=== PATIENT | female | born 1955 | race Caucasian/White ===

== ENCOUNTER 2018-01-29 11:57 | Emergency (ER) | payer MEDICARE, MEDICAID ==
[~2018-01-29] VITALS: Ht 165.1 cm; Wt 85.3 kg
[2018-01-29 12:26] VITALS: BP 130/57
[2018-01-29] MEDS ORDERED: KETOROLAC TROMETH 60MG/2ML VIAL IM ONE (13:30)
== END 2018-01-29 13:53 | disposition home or self-care (01) ==
LOC: ER 12:03
DX: S16.1XXA Strain of muscle, fascia and tendon at neck level, initial encounter (principal); S46.911A Strain of unspecified muscle, fascia and tendon at shoulder and upper arm level, right arm, initial encounter; M48.02 Spinal stenosis, cervical region; M19.90 Unspecified osteoarthritis, unspecified site; E11.9 Type 2 diabetes mellitus without complications; R51 Headache; V49.49XA Driver injured in collision with other motor vehicles in traffic accident, initial encounter; Y93.89 Activity, other specified; Y99.8 Other external cause status; Y92.89 Other specified places as the place of occurrence of the external cause
CPT/HCPCS: 70450; 72125; 96372; 99284; J1885; L0120

== ENCOUNTER 2018-08-06 10:51 | Emergency (ER) | payer OTHER ==
[~2018-08-06] VITALS: Ht 165.1 cm; Wt 82.1 kg
[~2018-08-06 10:51] MED LIST: ALBU1AER4 IN; ALPR0.5T7 PO; AML5T PO; CITA10TA70 PO; CONJ.6252 PO; CYCL1TAB18 PO; DIPH2.5T73 PO; EZET10TA6 PO; GLIP-116 PO; HYDR-4798 PO; HYDR-4924 PO; IBU600T PO; LATA0.0015 EACHEYE; LOSA25TA40 PO; MECL-87 PO; MONT10TA34 PO; NORT25CA PO; OMEP20TA PO; PREG300C12 PO; ROFL1TAB2 PO; ROSU1TAB10 PO; TEMA15CA91 PO; VALA500T33 PO
[2018-08-06 11:05] VITALS: BP 122/69
[2018-08-06 11:54] LABS: Basophils # (auto) 0.1 uL; Eosinophils # (auto) 0.3 uL; Eosinophils % (auto) 3.3 % (0.0-7.0); Hematocrit 42.3 % (36.0-46.0); Hemoglobin 13.8 g/dL (12.2-16.2); Lymphocytes # (auto) 1.7 uL; Lymphocytes % (auto) 20.3 % (10.0-50.0); Mean Corpuscular Hemoglobin 24.5 pg (28.0-32.0); Mean Corpuscular Hgb Conc. 32.6 g/dL (32.0-36.0); Mean Corpuscular Volume 75.2 fL (80.0-100.0); Monocytes # (auto) 0.5 uL; Monocytes % (auto) 6.5 % (0.0-12.0); Neutrophils # (auto) 5.7 uL; Neutrophils % (auto) 68.9 % (37.0-80.0); Nucleated Red Blood Cells % 0.1 %; Platelet Count (auto) 331 10^3/uL (140-450); Red Blood Cells 5.62 10^6/uL (4.0-5.20); Red Cell Distribution Width 14.3 % (11.8-14.3); White Blood Cell 8.3 10^3/uL (4.4-10.8)
[2018-08-06 12:05] LABS: Alanine Aminotransferase 54 U/L (13-56); Anion Gap 11 (5-15); Aspartate Aminotransferase 34 U/L (15-37); BUN/Creatinine Ratio 9.6; Blood Urea Nitrogen 8 mg/dL (7-18); Calcium 9.4 mg/dL (8.5-10.1); Carbon Dioxide 23 mmol/L (21-32); Chloride 105 mmol/L (98-107); GFR African American 90 mL/min; GFR Non-African American 75 mL/min; Glucose 187 mg/dL (74-106); Sodium 139 mmol/L (136-145)
[2018-08-06 12:09] LABS: Alkaline Phosphatase 113 U/L (45-117); Bilirubin, Total 0.4 mg/dL (0.2-1.0); Total Protein 7.6 g/dL (6.4-8.2)
== END 2018-08-06 22:49 | disposition left against medical advice (07) ==
LOC: ER 11:02
DX: R42 Dizziness and giddiness (principal); Z53.21 Procedure and treatment not carried out due to patient leaving prior to being seen by health care provider
CPT/HCPCS: 36415; 80053; 84484; 85025; 93005

== ENCOUNTER 2020-01-18 12:45 | Inpatient (IN) | payer OTHER ==
[~2020-01-18] VITALS: Ht 165.1 cm; Wt 83.2 kg
[~2020-01-18 12:45] MED LIST changes: +CYCL10TA6 PO; -CYCL1TAB18 PO; +EZET10TA22 PO; -EZET10TA6 PO; -GLIP-116 PO; +GLIP10TA9 PO; -LATA0.0015 EACHEYE; +LATA0.0019 EACHEYE; +LOSA25TA38 PO; -LOSA25TA40 PO; -MECL-87 PO; +MECL25TA18 PO; -ROSU1TAB10 PO; +ROSU1TAB14 PO
[2020-01-18 13:49] LABS: Eosinophils # (auto) 0 10 ^3/uL (0-0.8); Lymphocytes # (auto) 0.7 10 ^3/uL (0.4-5.4); Mean Corpuscular Hemoglobin 25.4 pg (28.0-32.0)
[2020-01-18 13:50] LABS: Basophils # (auto) 0.1 10 ^3/uL (0-0.2); Eosinophils % (auto) 0.5 % (0.0-7.0); Hematocrit 45.5 % (36.0-46.0); Lymphocytes % (auto) 12.2 % (10.0-50.0); Monocytes # (auto) 0.5 10 ^3/uL (0-1.3); Monocytes % (auto) 9.5 % (0.0-12.0); Neutrophils # (auto) 4.4 10 ^3/uL (1.6-8.6); Neutrophils % (auto) 76.8 % (37.0-80.0); Platelet Count (auto) 283 10^3/uL (140-450); Red Blood Cells 5.92 10^6/uL (4.0-5.20); Red Cell Distribution Width 14.3 % (11.8-14.3); White Blood Cell 5.7 10^3/uL (4.4-10.8)
[2020-01-18 13:55] LABS: Albumin 3.7 g/dL (3.4-5.0); Anion Gap 11 (5-15); Blood Urea Nitrogen 11 mg/dL (7-18); Calcium 9.1 mg/dL (8.5-10.1); Carbon Dioxide 22 mmol/L (21-32); Chloride 100 mmol/L (98-107); Glucose 234 mg/dL (74-106); Potassium 3.9 mmol/L (3.5-5.1); Sodium 133 mmol/L (136-145)
[2020-01-18 14:02] LABS: Alanine Aminotransferase 132 U/L (13-56); Alkaline Phosphatase 115 U/L (45-117); Aspartate Aminotransferase 231 U/L (15-37); BUN/Creatinine Ratio 11.5; Bilirubin, Total 0.3 mg/dL (0.2-1.0); CRP High Sensitivity 3.08 mg/dL (< 0.3); GFR African American 76 mL/min; GFR Non-African American 63 mL/min; Total Protein 7.6 g/dL (6.4-8.2)
[2020-01-18] MEDS ORDERED: MORPHINE SULF INJ 2 MG/ML SYRINGE 1ML IV PRN ×2 (19:00)
[2020-01-18] MEDS ORDERED: LORazepam 0.5 MG TAB PO PRN (19:00)
[2020-01-18] MEDS ORDERED: ACETAMINOPHEN 500 MG TAB PO PRN (19:00)
[2020-01-18] MEDS ORDERED: DEXTROSE (50%) 50ML SYRG IV PRN (19:00)
[2020-01-18] MEDS ORDERED: ACETAMINOPHEN 325 MG TAB PO PRN (19:00)
[2020-01-18] MEDS ORDERED: SODIUM CHLORIDE 0.9% 1,000 ML IV SCH (19:00)
[2020-01-18] MEDS ORDERED: ONDANSETRON HCL 4 MG/2 ML VIAL IV PRN (19:00)
[2020-01-18] MEDS ORDERED: PNEUMOCOCCAL VACC POLYS 25 MCG/0.5 ML VIAL IM ONE (19:00)
[2020-01-18] MEDS ORDERED: ALUM & MAG HYDROX-SIMETH LIQ(MAALOX) 30 ML PO PRN (19:00)
[2020-01-18] MEDS ORDERED: INFLUENZA QUAD 2020-2021 0.5 ML SYRG IM ONE (19:00)
[2020-01-18] MEDS ORDERED: NITROGLYCERIN 0.4 MG SL TAB SL PRN (19:00)
[2020-01-18] MEDS: ALBUTEROL SULF HFA 90MCG INH 200DOSE IN SCH (22:00)
[2020-01-18] MEDS: BUDESONIDE (INHALATION) 180 MCG IH IN SCH (22:00)
[2020-01-18 22:57] LABS: Basophils # (auto) 0.1 10 ^3/uL (0-0.2); Eosinophils # (auto) 0 10 ^3/uL (0-0.8); Lymphocytes # (auto) 0.9 10 ^3/uL (0.4-5.4); Monocytes # (auto) 0.6 10 ^3/uL (0-1.3); Neutrophils # (auto) 4.2 10 ^3/uL (1.6-8.6); White Blood Cell 5.8 10^3/uL (4.4-10.8)
[2020-01-18 22:58] LABS: Eosinophils % (auto) 0.4 % (0.0-7.0); Hematocrit 45.5 % (36.0-46.0); Hemoglobin 14.6 g/dL (12.2-16.2); Lymphocytes % (auto) 14.8 % (10.0-50.0); Mean Corpuscular Volume 78.1 fL (80.0-100.0); Monocytes % (auto) 10.3 % (0.0-12.0); Neutrophils % (auto) 73.5 % (37.0-80.0); Nucleated Red Blood Cells % 0.1 %; Platelet Count (auto) 263 10^3/uL (140-450); Red Blood Cells 5.82 10^6/uL (4.0-5.20); Red Cell Distribution Width 14.6 % (11.8-14.3)
[2020-01-18 23:15] VITALS: BP 115/59
[2020-01-18 23:31] LABS: Albumin 4.1 g/dL (3.4-5.0); Calcium 9.2 mg/dL (8.5-10.1); Magnesium 2.4 mg/dL (1.6-2.6); Potassium 3.6 mmol/L (3.5-5.1)
[2020-01-18 23:40] LABS: BUN/Creatinine Ratio 15.8; Bilirubin, Total 0.3 mg/dL (0.2-1.0); CRP High Sensitivity 5.91 mg/dL (< 0.3)
[2020-01-19] MEDS: ACCU-CHEK COMFORT CURVE STRIP VI SCH ×5 (02:20→22:20)
[2020-01-19] MEDS: DOXYCYCLINE 100MG/250ML 250 ML IV SCH ×3 (02:22→22:21)
[2020-01-19] MEDS: InsuLIN REG 1unit/0.01ml Soln (100units/ml) SC SCH ×5 (04:16→22:50)
[2020-01-19 05:39] LABS: Basophils # (auto) 0 10 ^3/uL (0-0.2); Eosinophils # (auto) 0 10 ^3/uL (0-0.8); Eosinophils % (auto) 0.2 % (0.0-7.0); Monocytes # (auto) 0.5 10 ^3/uL (0-1.3); White Blood Cell 4.4 10^3/uL (4.4-10.8)
[2020-01-19 05:42] LABS: Lymphocytes # (auto) 0.9 10 ^3/uL (0.4-5.4); Lymphocytes % (auto) 19.3 % (10.0-50.0); Mean Corpuscular Hemoglobin 25.1 pg (28.0-32.0); Mean Corpuscular Hgb Conc. 32.5 g/dL (32.0-36.0); Mean Corpuscular Volume 77.2 fL (80.0-100.0); Monocytes % (auto) 10.8 % (0.0-12.0); Neutrophils % (auto) 68.7 % (37.0-80.0); Nucleated Red Blood Cells % 0.1 %; Platelet Count (auto) 222 10^3/uL (140-450); Red Blood Cells 5.18 10^6/uL (4.0-5.20); Red Cell Distribution Width 14.4 % (11.8-14.3)
[2020-01-19 05:52] LABS: Albumin 3.3 g/dL (3.4-5.0); Calcium 8.5 mg/dL (8.5-10.1); Potassium 3.3 mmol/L (3.5-5.1)
[2020-01-19 05:58] LABS: BUN/Creatinine Ratio 19.7; Bilirubin, Total 0.2 mg/dL (0.2-1.0); Total Protein 6.5 g/dL (6.4-8.2)
[2020-01-19] MEDS: ALBUTEROL SULF HFA 90MCG INH 200DOSE IN SCH ×3 (06:00→23:00)
[2020-01-19] MEDS: GABAPENTIN 100 MG CAP PO SCH ×3 (06:04→22:20)
--- NOTE | 2020-01-19 07:20 | NUR ---
Respiratory note: PT SEEN, RESTING, NO RESP DISTRESS NOTED. HR 95, RR 26, SPO2 94% ON 2LNC. NO MDI'S AT BEDSIDE. WILL CALL PHARMACY
[2020-01-19] MEDS: BUDESONIDE (INHALATION) 180 MCG IH IN SCH ×2 (10:00→23:00)
[2020-01-19] MEDS: DexAMETHasone SOD PHOS 10MG/1ML VIAL INJ IV SCH (11:24)
[2020-01-19] MEDS: ENOXAPARIN SOD 40 MG/0.4 ML SYRINGE SC SCH (11:25)
[2020-01-19] MEDS: busPIRone HCL 10 MG TAB PO SCH ×2 (11:25→22:00)
[2020-01-19] MEDS: ASCORBIC ACID 1,000 MG TAB PO SCH (11:25)
[2020-01-19] MEDS: risperiDONE 1 MG TAB PO SCH (11:25)
[2020-01-19] MEDS: CHOLECALCIFEROL (VITD3) 2,000 UNIT CAP PO SCH (11:25)
[2020-01-19] MEDS ORDERED: REMDESIVIR PER PHARMACY IV SCH (15:30)
[2020-01-19] MEDS: HYDROcodone-ACET 5/325MG TAB PO PRN (18:05)
[2020-01-19] MEDS: glipiZIDE 5 MG TAB PO SCH (18:05)
[2020-01-19] MEDS ORDERED: ATORVASTATIN 20 MG TAB PO SCH (22:00)
[2020-01-19] MEDS: LATANOPROST 0.005 % OPTH(EYE) SOL 2.5ML EACHEYE SCH (22:00)
[2020-01-19] MEDS: MONTELUKAST SODIUM 10 MG TAB PO SCH (22:20)
[2020-01-19] MEDS: NORTRIPTYLINE HCL 10 MG CAP PO SCH (22:20)
--- NOTE | 2020-01-19 23:59 | NUR ---
Telemetry admit from ER KRAYSHONNA Guallpa admitted to Telemetry unit after SBAR received. Patient oriented to PARRIS ESPINOZA, RN primary RN, unit, room, bed, and unit policies regarding patient care and visiting hours. Patient now on continuous telemetry monitoring, tele box #31 and telemetry reading on arrival to unit is SR-90s. Patient placed on bedside oxygen 2L, weighed by bedscale and encouraged to call if they need something. All questions and concerns addressed, patient verbalized understanding.
[2020-01-20] VITALS (7 sets, daily range): BP systolic 122–132; BP diastolic 53–74
[2020-01-20] MEDS ORDERED: ASCO500T11 GT (01:12)
[2020-01-20] MEDS ORDERED: MOME200A INH (01:12)
[2020-01-20] MEDS ORDERED: OMEG100078 PO (01:12)
[2020-01-20] MEDS ORDERED: CALC-440 PO (01:12)
[2020-01-20] MEDS ORDERED: FERR27TA2 PO (01:12)
[2020-01-20] MEDS: GABAPENTIN 100 MG CAP PO SCH ×3 (06:17→23:21)
[2020-01-20] MEDS: glipiZIDE 5 MG TAB PO SCH ×2 (06:17→18:34)
[2020-01-20] MEDS: ACCU-CHEK COMFORT CURVE STRIP VI SCH ×4 (06:18→22:48)
[2020-01-20] MEDS: InsuLIN REG 1unit/0.01ml Soln (100units/ml) SC SCH ×4 (06:18→22:41)
[2020-01-20] MEDS: ALBUTEROL SULF HFA 90MCG INH 200DOSE IN SCH ×3 (06:45→22:18)
[2020-01-20 07:14] LABS: Potassium 3.7 mmol/L (3.5-5.1)
[2020-01-20 07:28] LABS: Albumin 3.2 g/dL (3.4-5.0); BUN/Creatinine Ratio 18.7; Bilirubin, Total 0.2 mg/dL (0.2-1.0); Calcium 8.5 mg/dL (8.5-10.1); Total Protein 6.9 g/dL (6.4-8.2)
--- NOTE | 2020-01-20 07:30 | NUR ---
Opening Shift Note Assumed care of patient, awake and alert. No S/S of distress/SOB or pain. Instructed on POC and to call for assist PRN, will continue to monitor for changes Q1hr and PRN. Fall precautions in place per safety protocol.
[2020-01-20 09:31] LABS: Urine Bacteria FEW /hpf (None Seen); Urine Blood Negative /uL (Negative); Urine Budding Yeast OCCASIONAL /hpf (None Seen); Urine Hyaline Cast FEW /lpf (0 - 2); Urine Mucus FEW (None Seen); Urine Specific Gravity 1.025 (1.001-1.035); Urine WBC 2 /hpf (0 - 5)
[2020-01-20] MEDS: DexAMETHasone SOD PHOS 10MG/1ML VIAL INJ IV SCH (10:54)
[2020-01-20] MEDS: ASCORBIC ACID 1,000 MG TAB PO SCH (10:54)
[2020-01-20] MEDS: DOXYCYCLINE 100MG/250ML 250 ML IV SCH ×2 (10:54→23:21)
[2020-01-20] MEDS: risperiDONE 1 MG TAB PO SCH (10:54)
[2020-01-20] MEDS: busPIRone HCL 10 MG TAB PO SCH ×2 (10:54→23:21)
[2020-01-20] MEDS: ENOXAPARIN SOD 40 MG/0.4 ML SYRINGE SC SCH (10:55)
[2020-01-20] MEDS: CHOLECALCIFEROL (VITD3) 2,000 UNIT CAP PO SCH (10:55)
--- NOTE | 2020-01-20 14:30 | NUR ---
Hospitalist MD Cobos at bedside, aware of patient status. Per MD Cobos, ok to start patient on home 4 home meds. Per MD Cobos stop gabapentin. MD Cobos discussed POC including Remdesivir and Plasma. Will carry out new orders and cont to monitor patient.
[2020-01-20] MEDS: BUDESONIDE (INHALATION) 180 MCG IH IN SCH ×2 (15:05→22:18)
[2020-01-20] MEDS ORDERED: MECLIZINE HCL 25 MG TAB PO PRN (16:15)
[2020-01-20] MEDS ORDERED: REMDESIVIR 200 MG in NS 210ml LOADING DOSE ADULT IV ONE (17:00)
--- NOTE | 2020-01-20 17:40 | NUR ---
Critical Blood Glucose Patient BG [id number]. Paged hospitalist lathe set up person. Awaiting call back at this time.
--- NOTE | 2020-01-20 18:10 | NUR ---
Repaged Hospitalist environmental professional for patients blood glucose. Awaiting call back at this time.
--- NOTE | 2020-01-20 18:50 | NUR ---
REMDESIVIR PRE-INFUSION BP:134/69 HR97 15 POST INFUSION BP:135/71 HR:92
[2020-01-20] MEDS ORDERED: PATIENTS OWN MEDICATION PO SCH (22:00)
--- NOTE | 2020-01-20 22:18 | NUR ---
AT BESIDE FOR MDI AND DPI ADMINISTRATION.
[2020-01-20] MEDS: LATANOPROST 0.005 % OPTH(EYE) SOL 2.5ML EACHEYE SCH ×2 (23:20)
[2020-01-20] MEDS: NORTRIPTYLINE HCL 10 MG CAP PO SCH (23:22)
[2020-01-20] MEDS: MONTELUKAST SODIUM 10 MG TAB PO SCH (23:22)
[2020-01-21] VITALS (8 sets, daily range): BP systolic 100–129; BP diastolic 51–72
[2020-01-21] MEDS: GABAPENTIN 100 MG CAP PO SCH ×3 (05:58→21:25)
[2020-01-21] MEDS: ACCU-CHEK COMFORT CURVE STRIP VI SCH ×4 (05:59→21:05)
[2020-01-21] MEDS: glipiZIDE 5 MG TAB PO SCH ×2 (05:59→18:17)
[2020-01-21] MEDS: InsuLIN REG 1unit/0.01ml Soln (100units/ml) SC SCH ×4 (06:00→21:06)
[2020-01-21] MEDS: HYDROcodone-ACET 5/325MG TAB PO PRN ×3 (06:10→21:26)
[2020-01-21] MEDS: BUDESONIDE (INHALATION) 180 MCG IH IN SCH ×2 (06:11→22:15)
[2020-01-21] MEDS: ALBUTEROL SULF HFA 90MCG INH 200DOSE IN SCH (06:11)
--- NOTE | 2020-01-21 06:11 | NUR ---
Respiratory note: PT REFUSING MDIS AT THIS TIME. NO DISTRESS NOTED. PT STATES SHE HAS A MIGRAINE. PT STATES SHE WAS JUST GIVEN NORCO
--- NOTE | 2020-01-21 07:01 | NUR ---
Dr Shelton New orders received: Consistent carb diet.
--- NOTE | 2020-01-21 07:43 | NUR ---
closing note pt is dangling at bedside. no respiratory distress noted. endorsed care to day shift MILTON Infante.
[2020-01-21 08:06] LABS: Albumin 3.5 g/dL (3.4-5.0); Calcium 8.8 mg/dL (8.5-10.1); Potassium 3.3 mmol/L (3.5-5.1)
[2020-01-21 08:09] LABS: BUN/Creatinine Ratio 14.9; Bilirubin, Total 0.3 mg/dL (0.2-1.0); Total Protein 7.6 g/dL (6.4-8.2)
[2020-01-21] MEDS: risperiDONE 1 MG TAB PO SCH (09:45)
[2020-01-21] MEDS ORDERED: POTASSIUM CHL 20 Meq TABLET PO ONE (09:45)
[2020-01-21] MEDS: ASCORBIC ACID 1,000 MG TAB PO SCH (09:45)
[2020-01-21] MEDS: DOXYCYCLINE 100MG/250ML 250 ML IV SCH ×2 (09:45→21:25)
[2020-01-21] MEDS: busPIRone HCL 10 MG TAB PO SCH ×2 (09:45→21:25)
[2020-01-21] MEDS: DexAMETHasone SOD PHOS 10MG/1ML VIAL INJ IV SCH (09:45)
[2020-01-21] MEDS: ENOXAPARIN SOD 40 MG/0.4 ML SYRINGE SC SCH (09:46)
[2020-01-21] MEDS: PREMPRO PO SCH (10:43)
[2020-01-21] MEDS: CHOLECALCIFEROL (VITD3) 2,000 UNIT CAP PO SCH (11:55)
[2020-01-21] MEDS: REMDESIVIR 100 MG in SODIUM CHL 0.9% 250 ML IV SCH (17:20)
--- NOTE | 2020-01-21 17:35 | NUR ---
REMDESIVIR PRE-INFUSION BP:127/69 HR:92 15 POST INFUSION BP:130/75 HR:91
--- NOTE | 2020-01-21 18:28 | NUR ---
CONVALESCENT PLASMA TRANSFUSION GIVEN. PATIENT TOLERATED WELL, WILL CONT TO MONITOR.
--- NOTE | 2020-01-21 18:40 | NUR ---
REMDESIVIR POST TRANSFUSION BP 132/59 HR:90
[2020-01-21] MEDS: LATANOPROST 0.005 % OPTH(EYE) SOL 2.5ML EACHEYE SCH ×2 (21:24)
[2020-01-21] MEDS: NORTRIPTYLINE HCL 10 MG CAP PO SCH (21:25)
[2020-01-21] MEDS: MONTELUKAST SODIUM 10 MG TAB PO SCH (21:26)
[2020-01-21] MEDS: ALBUTEROL SULF HFA 90MCG INH 200DOSE IN PRN (22:16)
[2020-01-22 05:00] VITALS: BP 112/63
[2020-01-22] MEDS: glipiZIDE 5 MG TAB PO SCH ×2 (06:05→18:17)
[2020-01-22] MEDS: GABAPENTIN 100 MG CAP PO SCH ×3 (06:06→22:59)
[2020-01-22] MEDS: InsuLIN REG 1unit/0.01ml Soln (100units/ml) SC SCH ×4 (06:07→21:54)
[2020-01-22] MEDS: ACCU-CHEK COMFORT CURVE STRIP VI SCH ×4 (06:07→21:54)
--- NOTE | 2020-01-22 07:40 | NUR ---
closing note pt is on 15L non rebreather. o2 saturation is 90%. pt is alert and oriented x4. endorsed care to day shift MILTON Infante. Addendum: 01/22/20 at 0752 by Korey White RN patient is also attached to continuous pulse ox #9
[2020-01-22 07:42] LABS: Basophils # (auto) 0 10 ^3/uL (0-0.2); Basophils % (auto) 0.4 % (0.0-2.0); Eosinophils # (auto) 0 10 ^3/uL (0-0.8); Lymphocytes # (auto) 0.6 10 ^3/uL (0.4-5.4); Monocytes # (auto) 0.4 10 ^3/uL (0-1.3)
[2020-01-22 07:47] LABS: Hematocrit 42.6 % (36.0-46.0); Hemoglobin 13.9 g/dL (12.2-16.2); Lymphocytes % (auto) 15.5 % (10.0-50.0); Mean Corpuscular Hgb Conc. 32.6 g/dL (32.0-36.0); Mean Corpuscular Volume 76.7 fL (80.0-100.0); Monocytes % (auto) 9.7 % (0.0-12.0); Neutrophils # (auto) 2.9 10 ^3/uL (1.6-8.6); Neutrophils % (auto) 74.4 % (37.0-80.0); Nucleated Red Blood Cells % 0.2 %; Platelet Count (auto) 229 10^3/uL (140-450); Red Blood Cells 5.55 10^6/uL (4.0-5.20); Red Cell Distribution Width 14.6 % (11.8-14.3); White Blood Cell 3.9 10^3/uL (4.4-10.8)
--- NOTE | 2020-01-22 07:50 | NUR ---
Opening Shift Note Assumed care of patient, awake and alert. Patient is tachypnic, with a temp of 101.2 and HR of 110. Patient instructed on POC and to call for assist PRN, will continue to monitor for changes Q1hr and PRN. Fall precautions in place per safety protocol. Patient currently on 15l Non-Breather with an O2 87%.
[2020-01-22 08:04] LABS: Albumin 3.3 g/dL (3.4-5.0); Calcium 9.2 mg/dL (8.5-10.1); Potassium 3.8 mmol/L (3.5-5.1)
[2020-01-22 08:08] LABS: BUN/Creatinine Ratio 18.3; Bilirubin, Total 0.3 mg/dL (0.2-1.0); Total Protein 7.7 g/dL (6.4-8.2)
--- NOTE | 2020-01-22 08:10 | NUR ---
Hospitalist Spoke to MD Cobos regarding patient's change in status. New orders received from MD Cobos. Will cont to monitor patient.
[2020-01-22] MEDS ORDERED: FUROSEMIDE 40 MG/4 ML VIAL IV ONE (08:15)
[2020-01-22 09:00] VITALS: BP 134/60
[2020-01-22] MEDS: ALBUTEROL SULF HFA 90MCG INH 200DOSE IN PRN ×2 (09:46→22:42)
[2020-01-22] MEDS: BUDESONIDE (INHALATION) 180 MCG IH IN SCH ×2 (09:46→22:42)
[2020-01-22] MEDS: DexAMETHasone SOD PHOS 10MG/1ML VIAL INJ IV SCH (10:25)
[2020-01-22] MEDS: DOXYCYCLINE 100MG/250ML 250 ML IV SCH ×2 (10:25→22:58)
[2020-01-22] MEDS: CHOLECALCIFEROL (VITD3) 2,000 UNIT CAP PO SCH (10:26)
[2020-01-22] MEDS: risperiDONE 1 MG TAB PO SCH (10:26)
[2020-01-22] MEDS: ASCORBIC ACID 1,000 MG TAB PO SCH (10:26)
[2020-01-22] MEDS: ENOXAPARIN SOD 100 MG/1 ML SYRINGE SC SCH ×2 (10:26→22:59)
[2020-01-22] MEDS: PREMPRO PO SCH (10:26)
[2020-01-22] MEDS: busPIRone HCL 10 MG TAB PO SCH ×2 (10:26→22:58)
--- NOTE | 2020-01-22 11:23 | NUR ---
Nutrition Assessment Note please attached link for complete assessment Est energy needs ABW 69 [id number] kcal (23-25 kcal/kg ABW) Est protein needs: 69-75 g (1.0-1.1 g/kg ABW) Will monitor and reassess prn Addendum: 01/22/20 at [address] Amended: Links added.
[2020-01-22 12:57] LABS: Hepatitis A Ab IgM Negative
[2020-01-22 12:58] LABS: Hepatitis B Core IgM Negative; Hepatitis B Surface Antigen Negative (Negative); Hepatitis C Antibody Negative (Negative)
[2020-01-22 13:00] VITALS: BP 116/51
[2020-01-22 17:00] VITALS: BP 119/72
[2020-01-22] MEDS: REMDESIVIR 100 MG in SODIUM CHL 0.9% 250 ML IV SCH (17:45)
--- NOTE | 2020-01-22 18:17 | NUR ---
REMDESIVIR PRE-INFUSION BP:107/52 HR:88 15 MIN POST-INFUSION BP:116/60 HR:90
[2020-01-22 22:00] VITALS: BP 99/55
[2020-01-22] MEDS: LATANOPROST 0.005 % OPTH(EYE) SOL 2.5ML EACHEYE SCH (22:57)
[2020-01-22] MEDS: NORTRIPTYLINE HCL 10 MG CAP PO SCH (22:59)
[2020-01-22] MEDS: MONTELUKAST SODIUM 10 MG TAB PO SCH (22:59)
--- NOTE | 2020-01-23 00:30 | NUR ---
Hospitalist Katy New orders received: BIPAP
--- NOTE | 2020-01-23 01:15 | NUR ---
pt currently on BIPAP. education given regarding need for BIPAP.
[2020-01-23] MEDS: HYDROcodone-ACET 5/325MG TAB PO PRN ×2 (02:50→12:03)
--- NOTE | 2020-01-23 03:22 | NUR ---
PT showing noncompliance with wearing BIPAP. this nurse recommended the patient to keep the BIPAP in place.
[2020-01-23 05:00] VITALS: BP 111/50
--- NOTE | 2020-01-23 05:05 | NUR ---
pt has taken off BIPAP, and refused to wear it at this time. Pt agreed to wear non rebreather at 15l non rebreather. O2 saturation is 88% on non rebreather. will continue to monitor.
--- NOTE | 2020-01-23 05:46 | NUR ---
pt now refusing to wear bipap and nonrebreather. o2 saturation is 69%. pt educated on the health consequences of not receiving enough oxygen. pt says "I want to ".
[2020-01-23] MEDS: GABAPENTIN 100 MG CAP PO SCH ×3 (06:43→21:08)
[2020-01-23] MEDS: glipiZIDE 5 MG TAB PO SCH ×2 (06:43→18:22)
[2020-01-23] MEDS: InsuLIN REG 1unit/0.01ml Soln (100units/ml) SC SCH ×4 (06:44→21:10)
--- NOTE | 2020-01-23 06:45 | NUR ---
spoke with Hospitalist Katy regarding patients noncompliance with wearing bipap and nonrebreather. pt will not wear supplemental oxygen. pt says "I want to ". Hospitalist was informed by this nurse that the patient wants to be DNR status. Per Hospitalist, I am to notify the family first before we proceed with DNR. PTS o2 saturation is 68% room air.
--- NOTE | 2020-01-23 06:56 | NUR ---
called next of kin Katie, the sister of this patient. the call went straight to voicemail. this nurse left a message asking Katie to call back as soon as possible.
[2020-01-23] MEDS: ACCU-CHEK COMFORT CURVE STRIP VI SCH ×4 (07:00→21:09)
[2020-01-23 07:03] LABS: Potassium 3.7 mmol/L (3.5-5.1)
--- NOTE | 2020-01-23 07:21 | NUR ---
closing note pt remains non compliant with wearing supplemental oxygen. Pt wants to be DNR status. Pt still says "I want to ". pts O2 saturation is 69%. respirations are 30. encouraged pt wear supplemental oxygen. pt says she does not have any family to contact. endorsed care to MILTON Rahman.
[2020-01-23 07:23] LABS: BUN/Creatinine Ratio 23.5; Bilirubin, Total 0.3 mg/dL (0.2-1.0); Calcium 8.7 mg/dL (8.5-10.1); Total Protein 7.3 g/dL (6.4-8.2)
--- NOTE | 2020-01-23 07:30 | NUR ---
Next of kin Per NOC RN Next of kin contact is patients sister who recently passed. Per NOC RN patient does not have any other family to inform regarding wish to be DNR status.
--- NOTE | 2020-01-23 07:44 | NUR ---
opening note Assumed care of patient from NOC RN. NOC and Day shift RN present at bedside. Patient laying in bed and tele box, o2 monitor noted to be removed and on the floor. Bed is in lowest locked position and call light within reach. Informed patient that heart and oxygen needs to be monitored. Patient stated "I don't want that stuff right now, I don't care. I'm done, I don't want to do this anymore." Nurses aid present at bedside, attempted to assess vital, and patient refused stating "I do not want it checked, I dont care if it's important don't do it." Inquired about patient wishing to be DNR status, patient stated "sign whatever needs to be signed, because I'm done." Will continue to monitor.
--- NOTE | 2020-01-23 08:05 | NUR ---
Respiratory note: FOUND PT WITH BIPAP ON STANDBY AND NRM RUNNING BUT ON THE FLOOR, PT REFUSED TO WEAR MASK OR ALLOW ME TO ASSESS HER OXYGENATION. PT STATED THAT IT IS HER RIGHT TO REFUSE AND TO PLEASE LEAVE HER ALONE. RN NOTIFIED
--- NOTE | 2020-01-23 08:57 | NUR ---
call from RT Received call from RT Monica regarding patient status. Informed her patient is refusing all treatments and all means of o2 delivery. Informed Monica that vitals and o2 saturation will be attempted to be assessed. Per Monica, provide call back with vitals at [phone].
--- NOTE | 2020-01-23 09:00 | NUR ---
Rounds Assessed patient and patient is AOX4, aware of self, loaction, month, and year. informed her that vitals and O2 need to be assessed. Patient stated "No, stop asking because I dont care, leave me alone. All I want is something for my throat pain." Informed her that vitals need to be assessed prior to medication administration, and patient still refusing. Educated patient regarding the importance of receiving O2 treatment and COVID treatments, patient still refusing stating "I want to be a DNR, which means no treatments to bring me back or resuscitate me, I dont want to fight this anymore." Inquired of other contact for next of kin, patient stated "My son, but he doesn't make decisions for me. I make my own". Asked for sons phone number and patient refused to provide it stating "You do not need to talk to him, he's aware and that's that." Educated patient on the assessment of O2 saturation, patient allowed o2 to be assessed and saturation is noted at 50%. Will notify MD and RT. Will continue to monitor.
--- NOTE | 2020-01-23 09:11 | NUR ---
spoke with RT Spoke with Angela RT. Informed her that patients o2 is at 50% on room air. Informed her that patient stated "I dont want any treatment, I am done with fighting, I want to be a DNR and I want to . Dont put me of oxygen i dont want that im over all this, just stop asking." Informed RT that patient is AOx4 and refusing to provide contact information of her son, stating "He cant decide for me, he knows i want to be a DNR and that's it. I make my own choices." Informed angela that MD krause was paged.
--- NOTE | 2020-01-23 09:15 | NUR ---
Call back from Received call back from Dr. Cobos informed that patient saturation is 50%, wishing to be DNR and refusing treatments. stated " if shes alert and refusing it is her decision, I will be in to see her." No new orders received.
--- NOTE | 2020-01-23 09:56 | NUR ---
call from steel post installer supervisor Call from steel post installer supervisorMILTON Patrick. Updated her on patient status. Per RN MD krause was contacted again regarding patient status.
[2020-01-23] MEDS: BUDESONIDE (INHALATION) 180 MCG IH IN SCH ×2 (10:00→21:32)
[2020-01-23] MEDS: PREMPRO PO SCH (10:00)
--- NOTE | 2020-01-23 10:05 | NUR ---
Physician rounding Dr. Cobos at bedside. MD educated patient on what DNR involves. Patient stated "i know it means do not resuscitate and if my heart would to stop beating it won't get brought back. But i am not sure i want that anymore." MD asked what patient desires for code status, and patient stated "i don't know." MD and this RN educated patient regarding treatments for COVID and what a full code verses a DNR represent. Patient now stating "I don't want to be a DNR , I just want to get better, i want treatments and i want help." MD stated that patient will remain a full code and patient verbalized agreeing and understanding.
--- NOTE | 2020-01-23 10:15 | NUR ---
Reassessment Reassessed patient regarding code status. Patient stated "Yes, keep me with treatments, and resuscitate me if my heart stops. I was just feeling scared and anxious and after talking to doctor I do not want to be a DNR. I know i can decide to be a DNR but i was just so stressed out and worried, I am tired." informed patient that it is in her right to decide what is done for her medically. Patient verbalized understanding and is agreeing to remaining a full code. Will continue to monitor.
--- NOTE | 2020-01-23 10:30 | NUR ---
PAGED RESPIRATORY Paged RT to room for assessment.
--- NOTE | 2020-01-23 11:30 | NUR ---
Paged RT Paged Rt to room for treatment and assessment.
[2020-01-23] MEDS: DexAMETHasone SOD PHOS 10MG/1ML VIAL INJ IV SCH (11:43)
[2020-01-23] MEDS: risperiDONE 1 MG TAB PO SCH (11:44)
[2020-01-23] MEDS: busPIRone HCL 10 MG TAB PO SCH ×2 (11:44→21:08)
[2020-01-23] MEDS: POTASSIUM CHL 20 Meq TABLET PO SCH (11:44)
[2020-01-23] MEDS: DOXYCYCLINE 100MG/250ML 250 ML IV SCH (11:44)
[2020-01-23] MEDS: ASCORBIC ACID 1,000 MG TAB PO SCH (11:45)
[2020-01-23] MEDS: ENOXAPARIN SOD 100 MG/1 ML SYRINGE SC SCH ×2 (11:45→21:09)
[2020-01-23] MEDS: CHOLECALCIFEROL (VITD3) 2,000 UNIT CAP PO SCH (11:45)
--- NOTE | 2020-01-23 11:45 | NUR ---
Called Respirator Called respiratory regarding patient status and needing to be placed on Bipap. Spoke with Yuliana who stated that someone will rounding on patient.
[2020-01-23] MEDS: FUROSEMIDE 40 MG/4 ML VIAL IV SCH (12:06)
[2020-01-23 12:45] VITALS: BP 114/69
--- NOTE | 2020-01-23 12:45 | NUR ---
RESPIRATORY PAGED RT PAGED TO ROOM.
[2020-01-23] MEDS ORDERED: THROAT LOZENGES(CEPASTAT) MT ONE (13:15)
[2020-01-23] MEDS ORDERED: THROAT LOZENGES(CEPASTAT) MT PRN (16:00)
--- NOTE | 2020-01-23 16:55 | NUR ---
Brown catheter insertion Patient assessed and determined to be in need of brown catheter. Order obtained from ijmi GABRIEL. Patient educated on catheter and reason for insertion. All questions answered. Brown catheter 14 guage Chinese inserted with clean sterile technique. Patient tolerated well.
[2020-01-23 17:00] VITALS: BP 107/60
[2020-01-23] MEDS: REMDESIVIR 100 MG in SODIUM CHL 0.9% 250 ML IV SCH (18:22)
--- NOTE | 2020-01-23 18:30 | NUR ---
Remdesivir infusing Medication was started with vitals of 107/60, 85 bpm. 1845- 15MIN into administration vitals are 105/60, 88bpm. Patient is AOX4 no s/s of distress noted. Will continue to monitor.
--- NOTE | 2020-01-23 19:15 | NUR ---
end of shift note Endorsed care to NOC RN. No s/s of distress noted.
--- NOTE | 2020-01-23 19:15 | NUR ---
opening note pt is on 15 L non rebreather, 02 saturation is 82%. pt refuses to wear BIPAP at this time. this nurse will continue to offer encouragement to wear BIPAP. pt is alert and oriented at this time. no visible distress noted. no c/o pain.
[2020-01-23] MEDS: LATANOPROST 0.005 % OPTH(EYE) SOL 2.5ML EACHEYE SCH (21:08)
[2020-01-23] MEDS: MONTELUKAST SODIUM 10 MG TAB PO SCH (21:08)
[2020-01-23] MEDS: NORTRIPTYLINE HCL 10 MG CAP PO SCH (21:08)
[2020-01-23] MEDS: ALBUTEROL SULF HFA 90MCG INH 200DOSE IN PRN (21:32)
[2020-01-23 22:00] VITALS: BP 100/51
[2020-01-24] MEDS: HYDROcodone-ACET 5/325MG TAB PO PRN (01:09)
--- NOTE | 2020-01-24 01:25 | NUR ---
pt agrees to wear BIPAP at this time. will continue to monitor.
--- NOTE | 2020-01-24 03:45 | NUR ---
pt does not want to wear BIPAP any longer. pt taken off of BIPAP. pt is willing to wear non rebreather 15L.
[2020-01-24 05:00] VITALS: BP 107/56
[2020-01-24] MEDS: glipiZIDE 5 MG TAB PO SCH ×2 (06:07→18:10)
[2020-01-24] MEDS: GABAPENTIN 100 MG CAP PO SCH ×3 (06:07→22:00)
[2020-01-24] MEDS: InsuLIN REG 1unit/0.01ml Soln (100units/ml) SC SCH ×4 (06:08→21:45)
[2020-01-24 06:09] LABS: Basophils # (auto) 0 10 ^3/uL (0-0.2); Basophils % (auto) 0.4 % (0.0-2.0); Eosinophils # (auto) 0 10 ^3/uL (0-0.8); Hemoglobin 13.7 g/dL (12.2-16.2); Lymphocytes # (auto) 0.8 10 ^3/uL (0.4-5.4)
[2020-01-24 06:11] LABS: Hematocrit 41.5 % (36.0-46.0); Lymphocytes % (auto) 18.8 % (10.0-50.0); Mean Corpuscular Hemoglobin 25.3 pg (28.0-32.0); Mean Corpuscular Hgb Conc. 32.9 g/dL (32.0-36.0); Monocytes # (auto) 0.5 10 ^3/uL (0-1.3); Monocytes % (auto) 13.3 % (0.0-12.0); Neutrophils # (auto) 2.8 10 ^3/uL (1.6-8.6); Neutrophils % (auto) 67.5 % (37.0-80.0); Nucleated Red Blood Cells % 0.2 %; Platelet Count (auto) 328 10^3/uL (140-450); Red Blood Cells 5.39 10^6/uL (4.0-5.20); Red Cell Distribution Width 14.8 % (11.8-14.3); White Blood Cell 4.1 10^3/uL (4.4-10.8)
--- NOTE | 2020-01-24 06:12 | NUR ---
PT beginning to show non compliance with wearing non rebreather. pt says its "driving me crazy, im just taking it off for a little while".
[2020-01-24] MEDS: ACCU-CHEK COMFORT CURVE STRIP VI SCH ×4 (06:23→21:45)
[2020-01-24 06:35] LABS: Albumin 2.7 g/dL (3.4-5.0); BUN/Creatinine Ratio 30.7; Bilirubin, Total 0.2 mg/dL (0.2-1.0); Calcium 8.4 mg/dL (8.5-10.1); Total Protein 7.2 g/dL (6.4-8.2)
--- NOTE | 2020-01-24 07:09 | NUR ---
closing note pt is on 15L non rebreather. no respiratory distress noted at this time. o2 saturation is 89%. endorsed care to day shift RN.
--- NOTE | 2020-01-24 07:50 | NUR ---
opening note Assumed care of patient from NOC RN. Patient is AOX4 on 15L non rebreather and noted to be short of breath. Assessed patients vitals and positioned patient in semi-fowlers. Bed is in lowest locked position, side rails up x2, and call light within reach. Updated patient on plan of care and patient verbalized understanding. Will continue to monitor.
--- NOTE | 2020-01-24 08:00 | NUR ---
oxygenation Patient on 15l via nonrebreather. Noted to be saturating in the low to mid 70%. Primary RN and RT chris present at bedside. Patient was informed on the benefits of being on bipap for treatment and patient stated "No I don't like it, it bothers me. My sister was on it when she passed and I cant stand it." Patient actively refusing bipap, even after education was provided. Patient was placed in side lying position on 6L via nasal cannula and 15L nonrebreather now saturating in the high 80% to low 90%. Will continue to monitor.
[2020-01-24 09:00] VITALS: BP 96/48
[2020-01-24] MEDS: PREMPRO PO SCH (10:00)
[2020-01-24] MEDS: FUROSEMIDE 40 MG/4 ML VIAL IV SCH (10:00)
[2020-01-24] MEDS: DexAMETHasone SOD PHOS 10MG/1ML VIAL INJ IV SCH (10:00)
[2020-01-24] MEDS: ENOXAPARIN SOD 100 MG/1 ML SYRINGE SC SCH ×2 (10:50→21:45)
[2020-01-24] MEDS: ASCORBIC ACID 1,000 MG TAB PO SCH (10:50)
[2020-01-24] MEDS: CHOLECALCIFEROL (VITD3) 2,000 UNIT CAP PO SCH (10:50)
[2020-01-24] MEDS: POTASSIUM CHL 20 Meq TABLET PO SCH (10:50)
[2020-01-24] MEDS: busPIRone HCL 10 MG TAB PO SCH ×2 (10:51→22:00)
[2020-01-24] MEDS: risperiDONE 1 MG TAB PO SCH (10:51)
[2020-01-24] MEDS: BUDESONIDE (INHALATION) 180 MCG IH IN SCH ×2 (10:53→22:00)
[2020-01-24] MEDS: LORazepam 2MG/ML-1ML VIAL IV PRN ×2 (10:54→21:37)
[2020-01-24 13:00] VITALS: BP 102/47
--- NOTE | 2020-01-24 13:10 | NUR ---
next of kin patient was requesting to update her next of kin contact information with her cousin nicole's number [phone], and brother in law [employer] number [phone]. Spoke with rachelle and provided him with patient update and status.
[2020-01-24 17:49] VITALS: BP 108/52
[2020-01-24] MEDS: REMDESIVIR 100 MG in SODIUM CHL 0.9% 250 ML IV SCH (17:58)
[2020-01-24 22:00] VITALS: BP 100/44
[2020-01-24] MEDS: NORTRIPTYLINE HCL 10 MG CAP PO SCH (22:00)
[2020-01-24] MEDS: LATANOPROST 0.005 % OPTH(EYE) SOL 2.5ML EACHEYE SCH (22:00)
[2020-01-24] MEDS: MONTELUKAST SODIUM 10 MG TAB PO SCH (22:00)
[2020-01-24] MEDS ORDERED: HALOPERIDOL LACTATE 5 MG/ML INJ VIAL ONE (22:20)
[2020-01-24] MEDS ORDERED: HALOPERIDOL LACTATE 5 MG/ML INJ VIAL IM ONE (22:30)
--- NOTE | 2020-01-24 23:01 | NUR ---
Respiratory note: RT PAGED FOR CODE ASSIST. UPON ARRIVAL PT HAD REMOVED HERSELF FROM BIPAP WITH AN SPO2 OF 75%. BIPAP MASK WAS PUT BACK ON THE PT AND SPO2 INCREASED TO 88%. PT IS AGITATED AND IS NOW WEARING SOFT RESTRAINTS WITH AN RN AND SITTER AT BEDSIDE. WILL CONTINUE TO MONITOR.
[2020-01-25] VITALS (72 sets, daily range): BP systolic 85–148; BP diastolic 30–73
--- NOTE | 2020-01-25 00:30 | NUR ---
Pt is non compliant. Pt will not wear BIPAP, continuously pulls it off. 02 saturation drops into the mid 40s on room air. pt pulling on lines and brown. pt attempting to get out of bed, and is a fall risk. pt is kicking around. pt has ripped out her IV. Pt has become very confused.
--- NOTE | 2020-01-25 01:00 | NUR ---
Hospitalist New orders received: med/surg medical restraint order. soft restraints placed on bilateral wrists. pt now has a sitter.
--- NOTE | 2020-01-25 01:01 | NUR ---
Pt is non compliant. Pt will not wear BIPAP, continuously attempting to pull it off. pt attempting to pull on lines and brown catheter. pt attempting to get out of bed, and is a fall risk. pt is kicking around. Pt has become very confused. sitter is at bedside.
[2020-01-25] MEDS ORDERED: LORazepam 2MG/ML-1ML VIAL IV ONE (01:15)
--- NOTE | 2020-01-25 01:15 | NUR ---
Hospitalist New orders received: 1mg ativan IV once. orders read back and verified.
[2020-01-25] MEDS ORDERED: SUCCINYLCHOLINE CHLORIDE 20 MG/ML 10ML VIAL IV ONE ×2 (03:00→04:15)
[2020-01-25] MEDS ORDERED: ETOMIDATE (2MG/ML) 20ML VIAL IV ONE ×2 (03:00→04:15)
--- NOTE | 2020-01-25 03:00 | NUR ---
Pt is non compliant. Pt will not wear BIPAP, continuously attempting to pull it off. pt attempting to pull on lines and brown catheter. pt attempting to get out of bed, and is a fall risk. pt is kicking around. O2 saturation is dropping to the mid 70s. respirations are consistently 50 or above per minute. Pt has become very confused. sitter is at bedside.
--- NOTE | 2020-01-25 03:15 | NUR ---
Pt brought to unit. Intubated on arrival by Scott Hensley MASTER SHEET CLERK. NGT placed and new IV started to Rt Forearm. Pt has tolerated but is still active and slightly combative. Sedation started as ordered. Pt in isolation for Covid. Lovelace to gravity. Will continue to monitor.
--- NOTE | 2020-01-25 03:18 | NUR ---
pts restraints were removed at this time.
--- NOTE | 2020-01-25 03:18 | NUR ---
MEDICATIONS: Etomidate 15mg IVP & Succinylcholine 80mg IVP administered for intubation.
--- NOTE | 2020-01-25 03:18 | NUR ---
Pt transferred to Rm 261.
--- NOTE | 2020-01-25 03:20 | NUR ---
pt transferred to [facility] room 261. pt intubated by TIMOTHY Hensley.
--- NOTE | 2020-01-25 03:20 | NUR ---
INTUBATION: Pt intubated by Jacklyn Hensley N.Veronique. on first attempt w/ 8.0 ETT, 24cm at teeth. Color change noted on CO2 detector and good breath sounds auscultated bilaterally. CXR pending.
[2020-01-25] MEDS ORDERED: PROPOFOL 100 ML IV ONE (03:22)
--- NOTE | 2020-01-25 03:29 | NUR ---
SEDATION: Diprivan gtt started at 30ug/kg/min for sedation, however pt remained extremely restless and combative, therefore rate increased to 50ug/kg/min. To continue to monitor pt. Pt may require second med for sedation.
--- NOTE | 2020-01-25 03:40 | NUR ---
IV: 20 gauge IV placed into pt's right anterior forearm on fist attempt. Good blood return noted and line flushes well. Line secured w/ occlusive dressing.
--- NOTE | 2020-01-25 03:50 | NUR ---
NGT: 16 Fr NGT inserted via right nare into stomach. NGT placement confirmed via auscultation and the aspiration of gastric contents into the tube. NGT secured at 60cm and placed to LIS.
[2020-01-25] MEDS ORDERED: fentaNYL Drip 2500mCg/250mlNS 250 ML IV ONE (04:14)
[2020-01-25] MEDS ORDERED: SODIUM CHLORIDE 0.9% 1,000 ML IV SCH (04:15)
[2020-01-25] MEDS: fentaNYL Drip 2500mCg/250mlNS 250 ML IV SCH ×2 (04:15→19:20)
[2020-01-25] MEDS: PROPOFOL 100 ML IV SCH ×3 (04:18→21:37)
--- NOTE | 2020-01-25 04:23 | NUR ---
Hospitalist New orders received: med/surg medical restraint order. soft restraints placed on bilateral wrists. pt now has a sitter. Addendum: 01/25/20 at 0425 by Korey White RN wrong time, actual time was 0100hrs
[2020-01-25] MEDS: ALBUTEROL SULF 2.5 MG/0.5ML(0.5%) NEB SOLN NEB SCH ×3 (06:00→22:14)
[2020-01-25] MEDS: BUDESONIDE (INHALATION) 0.5 MG/2 ML NEB NEB SCH ×2 (06:00→22:14)
[2020-01-25] MEDS: IPRATROPIUM BROM 0.5 MG/2.5ML INH SOL NEB SCH ×3 (06:00→22:14)
--- NOTE | 2020-01-25 06:15 | NUR ---
[facility] called to notify of ET tube in Left main bronch. Notified RT, RT currently adjusting tube. Will continue to monitor.
--- NOTE | 2020-01-25 06:21 | NUR ---
RT adjusted ET, stated 24cm at the lip. Will order xrray.
[2020-01-25] MEDS: glipiZIDE 5 MG TAB PO SCH (06:30)
[2020-01-25 06:34] LABS: Basophils # (auto) 0 10 ^3/uL (0-0.2); Basophils % (auto) 0.3 % (0.0-2.0); Eosinophils # (auto) 0 10 ^3/uL (0-0.8); Monocytes # (auto) 1.1 10 ^3/uL (0-1.3); Nucleated Red Blood Cells % 0.1 %
[2020-01-25 06:37] LABS: Hematocrit 39.5 % (36.0-46.0); Lymphocytes # (auto) 0.7 10 ^3/uL (0.4-5.4); Lymphocytes % (auto) 7.4 % (10.0-50.0); Mean Corpuscular Hemoglobin 25.5 pg (28.0-32.0); Mean Corpuscular Hgb Conc. 32.9 g/dL (32.0-36.0); Mean Corpuscular Volume 77.3 fL (80.0-100.0); Monocytes % (auto) 11.8 % (0.0-12.0); Neutrophils # (auto) 7.6 10 ^3/uL (1.6-8.6); Neutrophils % (auto) 80.5 % (37.0-80.0); Platelet Count (auto) 371 10^3/uL (140-450); Red Blood Cells 5.11 10^6/uL (4.0-5.20); Red Cell Distribution Width 14.5 % (11.8-14.3); White Blood Cell 9.5 10^3/uL (4.4-10.8)
--- NOTE | 2020-01-25 06:42 | NUR ---
Portable chest xray at this time.
[2020-01-25 06:54] LABS: Potassium 4.6 mmol/L (3.5-5.1)
[2020-01-25] MEDS: ACCU-CHEK COMFORT CURVE STRIP VI SCH ×3 (07:00→17:00)
--- NOTE | 2020-01-25 07:00 | NUR ---
Received report Yuliana ROSE Patient admitted to [facility] and intubated at 0315 after being on BiPap but was not tolerating it. Patient is COVID 19 positive. NEURO: Fentanyl 25 mcg, Propofol 50 mcg CARDIAC: NS, HR 92 BP 105/50 RESP: Vent AC rate 14 TV 450 PEEP 5 FIO2 100%, patient is over breathing the vent RR 27 GI: NG tube right nare, to LIS : Lovelace catheter to gravity Will continue to monitor.
[2020-01-25 07:11] LABS: Albumin 2.5 g/dL (3.4-5.0); BUN/Creatinine Ratio 23.4; Bilirubin, Total 0.5 mg/dL (0.2-1.0); Calcium 8.1 mg/dL (8.5-10.1); Total Protein 6.6 g/dL (6.4-8.2)
--- NOTE | 2020-01-25 07:56 | NUR ---
Pt has tolerated vent and is stable at this time. Report given to AM shift, care endorsed.
[2020-01-25] MEDS: InsuLIN REG 1unit/0.01ml Soln (100units/ml) SC SCH ×3 (08:00→17:00)
--- NOTE | 2020-01-25 08:30 | NUR ---
Initial Contact Patient easily arousable and moving around in bed. RN will increase sedation. ETT secretions scant, red, thick. Oral secretions scant, clear. Patient biting on tube, will increase sedation. Lovelace catheter leaking, RN reinflated balloon. Endorsed from PM nurse insulin 9 unit, 281 blood sugar. Oral care, catheter care, partial bedding change, patient repositioned.
[2020-01-25] MEDS: CHOLECALCIFEROL (VITD3) 2,000 UNIT CAP PO SCH (10:00)
--- NOTE | 2020-01-25 10:05 | NUR ---
Dr. Cobos bedside New order for Pulmonary consult to Dr. Dallas and increase PEEP to 10, D/C influids.
--- NOTE | 2020-01-25 10:13 | NUR ---
RT bedside patient is bucking the vent. He increase PEEP to 12 and patient SPO2 96%. RN decreased Propofol and increasing fentanyl to help with hypotension. Will page
[2020-01-25] MEDS: ENOXAPARIN SOD 100 MG/1 ML SYRINGE SC SCH (10:57)
[2020-01-25] MEDS: ALBUMIN 25% 100 ML IV SCH ×2 (10:57→18:30)
[2020-01-25] MEDS: POTASSIUM EFFERVESENT TAB 25 MEQ GT SCH (10:58)
[2020-01-25] MEDS: FUROSEMIDE 40 MG/4 ML VIAL IV SCH (10:58)
[2020-01-25] MEDS: ASCORBIC ACID 1,000 MG TAB PO SCH (10:59)
--- NOTE | 2020-01-25 11:00 | NUR ---
Patient repositioned and suctioned ETT and orally.
[2020-01-25] MEDS: DexAMETHasone SOD PHOS 10MG/1ML VIAL INJ IV SCH (11:10)
--- NOTE | 2020-01-25 12:00 | NUR ---
Dr. Dallas bedside Updated on status. Discussed vent settings. New order for ABG in two hours.
--- NOTE | 2020-01-25 12:29 | NUR ---
Nutrition Followup Note Wt: 80.4 kg Pt is positive for COVID intubated yesterday sedated with propofol @ 24.18 ml/hr providing 638 kcals from fats. pt is currently NPO with no new diet orders per RN Est energy needs ABW 69 [id number] kcal (23-25 kcal/kg ABW) Est protein needs: 69-75 g (1.0-1.1 g/kg ABW) Will monitor and reassess prn LABS: BUN 22 H GLU 281 H ALB 2.5 L CA 8.1 L GI: Pt had 1 BM 01/23 per RN doc. BS: 18 mod risk. Refer to wound assessment report for further details PES: Altered nutrition related lab values r.t current chronic medical condition aeb hyperglycemia, mild hypoalb Decreased nutrient needs r/t adiposity aeb pt`s high BMI of 30.3 kgm2 Comments: Will continue to monitor NPO status, skin status, pertinent labs and weight trends. Will f/u in 2-3 days Rec: 1) Consider alternate nutrition support if pt continues to be NPO. 2) if EN is choice of route consider Glucerna @ 40 ml/hr on current rate of propofol. 3) advance diet as medically feasible. 4) refer to CDE on DC. 2) continue current plan of care
--- NOTE | 2020-01-25 12:30 | NUR ---
Desaturation Patient was repositioned and then SPO2 76%. RN ordered STAT chest xray as ETT was advanced to assessment placement. Dr. Dallas on unit. Patient increased to PEEP of, FIO2 100% and patient was repositioned until she was responsive of the positioning.
[2020-01-25] MEDS ORDERED: NOREPINEPHRINE 8 MG/250ML KIT 250 ML IV ONE ×2 (12:39→14:59)
[2020-01-25] MEDS ORDERED: Glucerna 1.2 Cal 1Liter BOTTLE GT SCH (12:45)
--- NOTE | 2020-01-25 13:45 | NUR ---
RN bedside Oral care completed, patient not repostioned d/t desaturation when moved.
[2020-01-25] MEDS: METOCLOPRAMIDE HCL 5MG/ml INJ 2ml VIAL IV SCH (14:00)
[2020-01-25] MEDS: busPIRone HCL 10 MG TAB PO SCH (14:29)
[2020-01-25] MEDS: risperiDONE 1 MG TAB PO SCH (14:29)
[2020-01-25] MEDS: NOREPINEPHRINE 8 MG/250ML KIT 250 ML IV SCH (15:38)
--- NOTE | 2020-01-25 16:01 | NUR ---
RN spoke with son Ryan . He is relinquishing all legal responsibility for decisions of care for the patient. Patient wished that her niece Alpa Kong be the legal decision maker. Zhanna Triana has over the phone changed patients code status to DNR.
--- NOTE | 2020-01-25 18:30 | NUR ---
End of Shift RESP: Vent setting AC rate 14 TV 450 FIO 100% CARDIAC: hr 84. NSR BP 148/73, Levo 2 mcg NEURO: sedated, Propofol 40 mcg Fentanyl 200 mcg GI: No BM, NPO, BSC 156 : Lovelace yellow clear 900 ml Patient is DNR, Next of kin is Alpa.
--- NOTE | 2020-01-25 18:30 | NUR ---
Patient repositioned, oral care completed.
--- NOTE | 2020-01-25 19:24 | NUR ---
Report to P.MFloyd nurse.
[2020-01-26] VITALS (94 sets, daily range): BP systolic 99–149; BP diastolic 40–64
[2020-01-26] MEDS: LATANOPROST 0.005 % OPTH(EYE) SOL 2.5ML EACHEYE SCH ×2 (00:08→21:29)
[2020-01-26] MEDS: METOCLOPRAMIDE HCL 5MG/ml INJ 2ml VIAL IV SCH ×4 (00:08→21:29)
[2020-01-26] MEDS: NORTRIPTYLINE HCL 10 MG CAP PO SCH ×2 (00:09→21:30)
[2020-01-26] MEDS: ENOXAPARIN SOD 100 MG/1 ML SYRINGE SC SCH ×3 (00:09→21:30)
[2020-01-26] MEDS: busPIRone HCL 10 MG TAB PO SCH ×3 (00:09→21:30)
[2020-01-26] MEDS: ACCU-CHEK COMFORT CURVE STRIP VI SCH ×5 (00:10→21:30)
[2020-01-26] MEDS: InsuLIN REG 1unit/0.01ml Soln (100units/ml) SC SCH ×5 (00:11→21:55)
[2020-01-26] MEDS: MONTELUKAST SODIUM 10 MG TAB PO SCH ×2 (00:11→21:30)
[2020-01-26] MEDS: PROPOFOL 100 ML IV SCH ×4 (01:51→21:31)
[2020-01-26] MEDS: ALBUMIN 25% 100 ML IV SCH (02:00)
[2020-01-26 04:53] LABS: Basophils # (auto) 0 10 ^3/uL (0-0.2); Eosinophils # (auto) 0.1 10 ^3/uL (0-0.8); Lymphocytes # (auto) 0.9 10 ^3/uL (0.4-5.4); Monocytes # (auto) 0.8 10 ^3/uL (0-1.3)
[2020-01-26 04:58] LABS: Basophils % (auto) 0.4 % (0.0-2.0); Eosinophils % (auto) 1.4 % (0.0-7.0); Hematocrit 36.1 % (36.0-46.0); Lymphocytes % (auto) 11.8 % (10.0-50.0); Mean Corpuscular Hemoglobin 25.7 pg (28.0-32.0); Mean Corpuscular Hgb Conc. 33.3 g/dL (32.0-36.0); Mean Corpuscular Volume 77.2 fL (80.0-100.0); Monocytes % (auto) 10.1 % (0.0-12.0); Neutrophils # (auto) 5.9 10 ^3/uL (1.6-8.6); Neutrophils % (auto) 76.3 % (37.0-80.0); Nucleated Red Blood Cells % 0.2 %; Platelet Count (auto) 382 10^3/uL (140-450); Red Blood Cells 4.68 10^6/uL (4.0-5.20); White Blood Cell 7.8 10^3/uL (4.4-10.8)
[2020-01-26 05:14] LABS: Albumin 3.2 g/dL (3.4-5.0); Calcium 8.2 mg/dL (8.5-10.1); Potassium 3.9 mmol/L (3.5-5.1)
[2020-01-26 05:19] LABS: BUN/Creatinine Ratio 23.4; Bilirubin, Total 0.5 mg/dL (0.2-1.0); Total Protein 6.9 g/dL (6.4-8.2)
[2020-01-26] MEDS: ALBUTEROL SULF 2.5 MG/0.5ML(0.5%) NEB SOLN NEB SCH ×3 (06:00→22:10)
[2020-01-26] MEDS: IPRATROPIUM BROM 0.5 MG/2.5ML INH SOL NEB SCH ×3 (06:00→22:10)
--- NOTE | 2020-01-26 07:00 | NUR ---
Pt remains stable this shift and is tolerating vent well. Family called last night to inquire on pt status. Pt was bathed and linens changed, tolerated well. Temp slightly elevated this shift with a range of 99.1-99.9 orally. No S/S of distress. Report given, care endorsed.
[2020-01-26] MEDS: fentaNYL Drip 2500mCg/250mlNS 250 ML IV SCH (08:10)
[2020-01-26] MEDS: BUDESONIDE (INHALATION) 0.5 MG/2 ML NEB NEB SCH ×2 (09:30→22:10)
[2020-01-26] MEDS: DexAMETHasone SOD PHOS 10MG/1ML VIAL INJ IV SCH (09:43)
[2020-01-26] MEDS: POTASSIUM EFFERVESENT TAB 25 MEQ GT SCH (09:43)
[2020-01-26] MEDS: FUROSEMIDE 40 MG/4 ML VIAL IV SCH (09:44)
[2020-01-26] MEDS: risperiDONE 1 MG TAB PO SCH (09:44)
[2020-01-26] MEDS: ASCORBIC ACID 1,000 MG TAB PO SCH (09:44)
[2020-01-26] MEDS: CHOLECALCIFEROL (VITD3) 2,000 UNIT CAP PO SCH (09:44)
--- NOTE | 2020-01-26 09:45 | NUR ---
RN bedside Oral care and cooling measures for patient.
--- NOTE | 2020-01-26 10:30 | NUR ---
RN bedside ETT suctioning, repositioning. Oral care.
--- NOTE | 2020-01-26 10:43 | NUR ---
Dr. Dallas bedside Updated on status. RT bedside. New orders to decrease FIO2 to 90%.
--- NOTE | 2020-01-26 10:56 | NUR ---
RN bedside Patient given cold bed bath for Temp of 102.1 axillary with beads of sweat on face.
[2020-01-26] MEDS: ACETAMINOPHEN 650 mg PER 20.3 mL UD GT PRN (11:03)
--- NOTE | 2020-01-26 11:58 | NUR ---
Patients decision-maker Alpa called for update. When discussing patients possible length of stay, she is requesting that if patient has any further changes or complications of COVID 19 she would like to be notified to decide whether she would like to continue care.
--- NOTE | 2020-01-26 12:30 | NUR ---
RN bedside Patients hair was washed, partial bedding changed and hair brushed and put in a ponytail.
--- NOTE | 2020-01-26 13:36 | NUR ---
Midline Placement: 18g/10cm midline inserted via RIGHT CEPHALIC vein using Ultrasound. Sterile technique utilized. Blood return obtained from THE SINGLE lumen and flushed easily with NS using proper technique. Midline secured with saline lock; biodisc and occlusive dressing applied. Primary RN notified. Midline lot # [id number]
--- NOTE | 2020-01-26 14:00 | NUR ---
RN bedside Patient infusing convalescent plasma. Oral care.
--- NOTE | 2020-01-26 15:40 | NUR ---
RN bedside Temperature check, ETT suctioning, oral care.
--- NOTE | 2020-01-26 16:35 | NUR ---
RN bedside Oral care, patient respositioned.
--- NOTE | 2020-01-26 19:00 | NUR ---
Report to Eva Thomas
--- NOTE | 2020-01-26 19:15 | NUR ---
Received report, assumed care, full assessment done; see interventions.
--- NOTE | 2020-01-26 20:15 | NUR ---
Glucerna tube feedings started per orders after NGT placement verified via auscultation of air bolus; started feedings at 10 ml/hr.
[2020-01-26] MEDS: NOREPINEPHRINE 8 MG/250ML KIT 250 ML IV SCH (20:32)
[2020-01-27] VITALS (100 sets, daily range): BP systolic 93–139; BP diastolic 44–74
[2020-01-27 03:28] LABS: Basophils # (auto) 0 10 ^3/uL (0-0.2); Eosinophils # (auto) 0 10 ^3/uL (0-0.8); Eosinophils % (auto) 0.1 % (0.0-7.0); Hemoglobin 11.5 g/dL (12.2-16.2); Lymphocytes # (auto) 0.5 10 ^3/uL (0.4-5.4); Lymphocytes % (auto) 4.9 % (10.0-50.0); Mean Corpuscular Hgb Conc. 31.9 g/dL (32.0-36.0); Mean Corpuscular Volume 78.4 fL (80.0-100.0); Monocytes # (auto) 0.7 10 ^3/uL (0-1.3); Monocytes % (auto) 7.9 % (0.0-12.0); Neutrophils # (auto) 8.3 10 ^3/uL (1.6-8.6); Neutrophils % (auto) 87.1 % (37.0-80.0); Nucleated Red Blood Cells % 0.2 %; Platelet Count (auto) 417 10^3/uL (140-450); Red Blood Cells 4.59 10^6/uL (4.0-5.20); Red Cell Distribution Width 14.9 % (11.8-14.3); White Blood Cell 9.5 10^3/uL (4.4-10.8)
[2020-01-27 03:30] LABS: Potassium 4.4 mmol/L (3.5-5.1)
[2020-01-27 03:37] LABS: Albumin 2.8 g/dL (3.4-5.0); BUN/Creatinine Ratio 16.3; Bilirubin, Total 0.4 mg/dL (0.2-1.0); Calcium 8.1 mg/dL (8.5-10.1)
[2020-01-27] MEDS: PROPOFOL 100 ML IV SCH ×4 (04:26→22:35)
[2020-01-27] MEDS: fentaNYL Drip 2500mCg/250mlNS 250 ML IV SCH ×2 (05:00→16:29)
[2020-01-27] MEDS: METOCLOPRAMIDE HCL 5MG/ml INJ 2ml VIAL IV SCH ×3 (05:25→19:35)
[2020-01-27] MEDS: InsuLIN REG 1unit/0.01ml Soln (100units/ml) SC SCH ×4 (06:46→19:41)
[2020-01-27] MEDS: ACCU-CHEK COMFORT CURVE STRIP VI SCH ×4 (06:50→19:36)
[2020-01-27] MEDS: IPRATROPIUM BROM 0.5 MG/2.5ML INH SOL NEB SCH ×3 (06:55→23:08)
[2020-01-27] MEDS: BUDESONIDE (INHALATION) 0.5 MG/2 ML NEB NEB SCH ×2 (06:56→23:07)
[2020-01-27] MEDS: ALBUTEROL SULF 2.5 MG/0.5ML(0.5%) NEB SOLN NEB SCH ×3 (06:56→23:07)
--- NOTE | 2020-01-27 07:18 | NUR ---
Respiratory note: RECEIVED PATIENT ON V14 ESPRIT VENT ORALLY INTUBATED WITH AN 8.0 ETT SECURED VIA SABIHA AT THE 22CM MARKING AT THE LIP, AND MECHANICALLY VENTILATED WITH THE CHARTED SETTINGS. SPO2 97%, LUNG SOUNDS DIM T/O, SMALL AMOUNT OF THICK BROWNISH COLORED SECRETIONS WHEN SUCTIONED. PATIENT IS UNRESPONSIVE TO BOTH VERBAL/TACTILE STIMULI AND IS SEDATED ON PROPOFOL AND FENTANYL DRIPS. SHE IS RESTING COMFORTABLY AND TOLERATING VENT WELL, NO CHANGES MADE. VENT PLUGGED INTO RED OUTLET AND ALL ALARMS ARE SET AND AUDIBLE. WILL CONTINUE TO ASSESS PATIENT WELL VENTILATOR FUNCTION. [employer] P[facility] RUN INLINE.
--- NOTE | 2020-01-27 07:41 | NUR ---
Respiratory note: FIO2 DECREASED TO 80% AT THIS TIME POST ABG RESULTS. MILTON EVANS MADE AWARE OF CHANGE.
--- NOTE | 2020-01-27 09:00 | NUR ---
OPENING NOTE PT SEDATED AND INTUBATED. SEE IV SPREADSHEET FOR TITRATION. COMPLETE PHYSICAL ASSESSMENT UNDER INTERVENTIONS. NO DISTRESS NOTED. BED LOCKED FOR SAFETY. IV'S ARE PATENT AND NO REDNESS NOTED. MCCALL DRAINING TO GRAVITY. ALL ALARMS IN PLACE AND CONNECTED TO MONITOR IN NURSE STATION.
[2020-01-27] MEDS: busPIRone HCL 10 MG TAB PO SCH ×2 (09:44→19:35)
[2020-01-27] MEDS: DexAMETHasone SOD PHOS 10MG/1ML VIAL INJ IV SCH (09:50)
[2020-01-27] MEDS: POTASSIUM EFFERVESENT TAB 25 MEQ GT SCH (09:50)
[2020-01-27] MEDS: FUROSEMIDE 40 MG/4 ML VIAL IV SCH (09:50)
[2020-01-27] MEDS: risperiDONE 1 MG TAB PO SCH (09:51)
[2020-01-27] MEDS: ENOXAPARIN SOD 100 MG/1 ML SYRINGE SC SCH ×2 (09:52→19:36)
[2020-01-27] MEDS: CHOLECALCIFEROL (VITD3) 2,000 UNIT CAP PO SCH (09:52)
[2020-01-27] MEDS: ASCORBIC ACID 1,000 MG TAB PO SCH (09:52)
[2020-01-27] MEDS: INSULIN LANTUS (GLARGINE) 1 /0.01ml (100units/ml) SC SCH ×2 (11:36→19:41)
--- NOTE | 2020-01-27 11:50 | NUR ---
PT REPOSITIONED ADJUSTED PILLOWS AND ORAL CARE DONE AT THIS TIME. FEEDING PLACED ON HOLD MOMENTARILY WHILE PT REPOSITIONED. SMALL RESIDUALS FROM NG TUBE.
[2020-01-27] MEDS: NOREPINEPHRINE 8 MG/250ML KIT 250 ML IV SCH (15:30)
--- NOTE | 2020-01-27 16:14 | NUR ---
Nutrition Followup Note Wt: 85.0 kg Pt is positive for COVID intubated, sedated with propofol @ 24.18 ml/hr providing 638 kcals from fats. Pt is currently NPO with Glucerna 1.2 @ 10ml/hr started on 01/25 per RN note. Est energy needs ABW 69 [id number] kcal (23-25 kcal/kg ABW) Est protein needs: 69-75 g (1.0-1.1 g/kg ABW) Will monitor and reassess prn LABS: GLU 303 H ALB 2.8 L CA 8.1 L GI: Pt had 1 BM 01/24 per RN doc. BS: 17 mod risk. Refer to wound assessment report for further details PES: 1) Altered nutrition related lab values r.t current chronic medical condition aeb hyperglycemia, mild hypoalb 2) Decreased nutrient needs r/t adiposity aeb pt`s high BMI of 30.3 kgm2 Comments: Will continue to monitor NPO status, skin status, pertinent labs and weight trends. Will f/u in 2-3 days Rec: 1) Consider alternate nutrition support if pt continues to be NPO. 2) If EN is choice of route consider Glucerna @ 40 ml/hr on current rate of propofol. 3) Advance diet as medically feasible. 4) Refer to CDE on DC. 5) Continue current plan of care
--- NOTE | 2020-01-27 17:20 | NUR ---
PT RESTING APPEARS TO BE RESTING. ALARMS IN PLACE. POX 97%.
--- NOTE | 2020-01-27 19:22 | NUR ---
CLOSING NOTE VSS. NO DISTRESS NOTED. POX 95%, BP 106,61, HR 97. REMAINS SEDATED AND INTUBATED. REPORT GIVE TO PURA RN.
[2020-01-27] MEDS: MONTELUKAST SODIUM 10 MG TAB PO SCH (19:35)
[2020-01-27] MEDS: LATANOPROST 0.005 % OPTH(EYE) SOL 2.5ML EACHEYE SCH (19:35)
[2020-01-27] MEDS: NORTRIPTYLINE HCL 10 MG CAP PO SCH (19:40)
[2020-01-28] VITALS (87 sets, daily range): BP systolic 90–152; BP diastolic 40–72
[2020-01-28] MEDS: PROPOFOL 100 ML IV SCH ×3 (03:18→23:39)
[2020-01-28] MEDS: fentaNYL Drip 2500mCg/250mlNS 250 ML IV SCH (03:46)
[2020-01-28 04:49] LABS: Basophils # (auto) 0 10 ^3/uL (0-0.2); Eosinophils # (auto) 0 10 ^3/uL (0-0.8); Hemoglobin 11.2 g/dL (12.2-16.2); Lymphocytes # (auto) 0.3 10 ^3/uL (0.4-5.4)
[2020-01-28 04:54] LABS: Basophils % (auto) 0.2 % (0.0-2.0); Hematocrit 34.5 % (36.0-46.0); Lymphocytes % (auto) 3.3 % (10.0-50.0); Mean Corpuscular Hemoglobin 25.2 pg (28.0-32.0); Mean Corpuscular Hgb Conc. 32.5 g/dL (32.0-36.0); Mean Corpuscular Volume 77.8 fL (80.0-100.0); Monocytes # (auto) 0.6 10 ^3/uL (0-1.3); Neutrophils % (auto) 88.5 % (37.0-80.0); Nucleated Red Blood Cells % 0.1 %; Platelet Count (auto) 455 10^3/uL (140-450); Red Blood Cells 4.44 10^6/uL (4.0-5.20); Red Cell Distribution Width 15.3 % (11.8-14.3); White Blood Cell 7.9 10^3/uL (4.4-10.8)
[2020-01-28 05:03] LABS: Albumin 2.5 g/dL (3.4-5.0); Calcium 8.7 mg/dL (8.5-10.1); Potassium 4.9 mmol/L (3.5-5.1)
[2020-01-28] MEDS: ACCU-CHEK COMFORT CURVE STRIP VI SCH ×4 (05:06→22:15)
[2020-01-28 05:07] LABS: BUN/Creatinine Ratio 26.7; Bilirubin, Total 0.4 mg/dL (0.2-1.0); Total Protein 7.2 g/dL (6.4-8.2)
[2020-01-28] MEDS: InsuLIN REG 1unit/0.01ml Soln (100units/ml) SC SCH ×4 (05:16→22:22)
[2020-01-28] MEDS: METOCLOPRAMIDE HCL 5MG/ml INJ 2ml VIAL IV SCH ×3 (05:16→22:13)
[2020-01-28] MEDS: ALBUTEROL SULF 2.5 MG/0.5ML(0.5%) NEB SOLN NEB SCH ×3 (06:15→19:00)
[2020-01-28] MEDS: IPRATROPIUM BROM 0.5 MG/2.5ML INH SOL NEB SCH ×3 (06:15→19:00)
--- NOTE | 2020-01-28 08:10 | NUR ---
DESATURATION PATIENT ON 2 SEDATIONS BUT WAKING UP, COUGHING AND RAISING ARMS, DESATURATING TO LOW 80S. NOTIFIED RESPIRATORY THERAPIST AND FIO2 INCREASED
[2020-01-28] MEDS ORDERED: MIDAZOLAM DRIP 50 mg/50mL 50 ML IV ONE (08:20)
[2020-01-28] MEDS: MIDAZOLAM DRIP 50 mg/50mL 50 ML IV SCH ×3 (08:30→20:00)
--- NOTE | 2020-01-28 10:38 | NUR ---
FAMILY CALL PATIENTS CAROLINA ZAIDI CALLED FOR UPDATE. PROVIDED PASSWORD. UPDATED ON CURRENT STATUS AND PLAN OF CARE
--- NOTE | 2020-01-28 10:50 | NUR ---
DR STOVALL AT BEDSIDE DISCUSSED PATIENTS STATUS AND PLAN OF CARE, NEW ORDERS RECEIVED
[2020-01-28] MEDS: DexAMETHasone SOD PHOS 10MG/1ML VIAL INJ IV SCH (11:00)
[2020-01-28] MEDS: ASCORBIC ACID 1,000 MG TAB PO SCH (11:00)
[2020-01-28] MEDS: FUROSEMIDE 40 MG/4 ML VIAL IV SCH (11:00)
[2020-01-28] MEDS: risperiDONE 1 MG TAB PO SCH (11:00)
[2020-01-28] MEDS: POTASSIUM EFFERVESENT TAB 25 MEQ GT SCH (11:00)
[2020-01-28] MEDS: CHOLECALCIFEROL (VITD3) 2,000 UNIT CAP PO SCH (11:00)
[2020-01-28] MEDS: INSULIN LANTUS (GLARGINE) 1 /0.01ml (100units/ml) SC SCH ×2 (11:00→22:36)
[2020-01-28] MEDS: busPIRone HCL 10 MG TAB PO SCH ×2 (11:00→22:14)
--- NOTE | 2020-01-28 11:15 | NUR ---
DR NAVARRETE AT BEDSIDE DISCUSSED PATIENTS STATUS.
--- NOTE | 2020-01-28 12:33 | NUR ---
SPOKE WITH NEXT OF KIN JOSE (NIECE) REGARDING PICC PICC CONSENT OBTAINED, VERIFYING WITH 2ND RN OVER THE PHONE. PLACED IN CHART.
--- NOTE | 2020-01-28 14:00 | NUR ---
TEMPERATURES ORAL TEMPERATURES ELEVATED, RECTAL TEMPERATURE PROBE PLACED. RECTAL READINGS 102.0. COOLING MEASURES INITIATED. WILL CONTINUE TO MONITOR CLOSELY
[2020-01-28] MEDS: BUDESONIDE (INHALATION) 0.5 MG/2 ML NEB NEB SCH ×2 (14:57→19:00)
[2020-01-28] MEDS: NOREPINEPHRINE 8 MG/250ML KIT 250 ML IV SCH (15:30)
--- NOTE | 2020-01-28 16:08 | NUR ---
PATIENTS FRIEND CALLED FOR UPDATE PROVIDED PASSWORD. UPDATED ON PATIENTS STATUS AND PLAN OF CARE
[2020-01-28] MEDS: glipiZIDE 5 MG TAB GT SCH (18:43)
[2020-01-28] MEDS: ACETAMINOPHEN 650 mg PER 20.3 mL UD GT PRN (18:45)
--- NOTE | 2020-01-28 21:29 | NUR ---
SPOKE WITH JOSE (FAMILY MEMBER) VERIFIED PASSWORD UPDATED JOSE ON PATIENTS STATUS AND POC, ALL QUESTIONS AND CONCERNS ADDRESSED. JOSE VERBALIZED UNDERSTANDING.
[2020-01-28] MEDS: NORTRIPTYLINE HCL 10 MG CAP PO SCH (22:00)
[2020-01-28] MEDS: LATANOPROST 0.005 % OPTH(EYE) SOL 2.5ML EACHEYE SCH (22:13)
[2020-01-28] MEDS: MONTELUKAST SODIUM 10 MG TAB PO SCH (22:14)
[2020-01-28] MEDS: ENOXAPARIN SOD 80 MG/0.8ML SYRINGE SC SCH (22:15)
[2020-01-29] VITALS (55 sets, daily range): BP systolic 104–147; BP diastolic 52–75
--- NOTE | 2020-01-29 02:12 | NUR ---
DESATURATING TO 85% PATIENT DID NOT TOLERATES CARES; FULL TURNS, FULL BED LINEN CHANGE. DURING TURNING PATIENT DESATURATED TO LOW 80'S BUT WAS ONLY ABLE TO GO UP TO 85% AFTER 15 MIN. PATIENT IS ABLE TO GO ABOVE 90% ON HYPEROXYGENATION OF 100% PAGED RT
[2020-01-29] MEDS: fentaNYL Drip 2500mCg/250mlNS 250 ML IV SCH (02:46)
[2020-01-29] MEDS: MIDAZOLAM DRIP 50 mg/50mL 50 ML IV SCH ×2 (02:47→06:27)
[2020-01-29] MEDS: ACETAMINOPHEN 650 mg PER 20.3 mL UD GT PRN (02:49)
--- NOTE | 2020-01-29 03:00 | NUR ---
TEMP 102.2 DECREASED TEMPERATURE FURTHER ON COOLING BLANKET, ADMINISTERED TYLENOL.
[2020-01-29 03:20] LABS: Eosinophils # (auto) 0.1 10 ^3/uL (0-0.8); Lymphocytes # (auto) 0.7 10 ^3/uL (0.4-5.4); Nucleated Red Blood Cells % 0.1 %
[2020-01-29 03:26] LABS: Basophils # (auto) 0 10 ^3/uL (0-0.2); Basophils % (auto) 0.4 % (0.0-2.0); Eosinophils % (auto) 1.3 % (0.0-7.0); Hematocrit 41.8 % (36.0-46.0); Hemoglobin 13.5 g/dL (12.2-16.2); Lymphocytes % (auto) 7.9 % (10.0-50.0); Mean Corpuscular Hemoglobin 25.9 pg (28.0-32.0); Mean Corpuscular Hgb Conc. 32.3 g/dL (32.0-36.0); Mean Corpuscular Volume 80.1 fL (80.0-100.0); Monocytes # (auto) 0.4 10 ^3/uL (0-1.3); Monocytes % (auto) 5.2 % (0.0-12.0); Neutrophils # (auto) 7.4 10 ^3/uL (1.6-8.6); Neutrophils % (auto) 85.2 % (37.0-80.0); Platelet Count (auto) 419 10^3/uL (140-450); Red Blood Cells 5.21 10^6/uL (4.0-5.20); White Blood Cell 8.7 10^3/uL (4.4-10.8)
[2020-01-29] MEDS: METOCLOPRAMIDE HCL 5MG/ml INJ 2ml VIAL IV SCH (06:27)
[2020-01-29] MEDS: glipiZIDE 5 MG TAB GT SCH (06:27)
[2020-01-29] MEDS: ACCU-CHEK COMFORT CURVE STRIP VI SCH ×2 (06:28→11:30)
[2020-01-29] MEDS: InsuLIN REG 1unit/0.01ml Soln (100units/ml) SC SCH ×2 (06:28→11:30)
[2020-01-29] MEDS: ALBUTEROL SULF 2.5 MG/0.5ML(0.5%) NEB SOLN NEB SCH (07:15)
[2020-01-29] MEDS: BUDESONIDE (INHALATION) 0.5 MG/2 ML NEB NEB SCH (07:15)
[2020-01-29] MEDS: IPRATROPIUM BROM 0.5 MG/2.5ML INH SOL NEB SCH (07:15)
[2020-01-29 07:16] LABS: Albumin 1.6 g/dL (3.4-5.0); BUN/Creatinine Ratio 43.8; Bilirubin, Total 0.7 mg/dL (0.2-1.0); Calcium 6.7 mg/dL (8.5-10.1); Total Protein 5.5 g/dL (6.4-8.2)
[2020-01-29] MEDS: PROPOFOL 100 ML IV SCH (08:05)
[2020-01-29] MEDS ORDERED: ALBUMIN 25% 100 ML IV ONE (09:30)
[2020-01-29] MEDS: POTASSIUM EFFERVESENT TAB 25 MEQ GT SCH (09:40)
[2020-01-29] MEDS: CHOLECALCIFEROL (VITD3) 2,000 UNIT CAP PO SCH (09:40)
[2020-01-29] MEDS: busPIRone HCL 10 MG TAB PO SCH (09:40)
[2020-01-29] MEDS: DexAMETHasone SOD PHOS 10MG/1ML VIAL INJ IV SCH (09:40)
[2020-01-29] MEDS: risperiDONE 1 MG TAB PO SCH (09:40)
[2020-01-29] MEDS: ENOXAPARIN SOD 80 MG/0.8ML SYRINGE SC SCH (09:40)
[2020-01-29] MEDS: ASCORBIC ACID 1,000 MG TAB PO SCH (09:40)
[2020-01-29] MEDS: INSULIN LANTUS (GLARGINE) 1 /0.01ml (100units/ml) SC SCH (10:00)
[2020-01-29] MEDS ORDERED: FUROSEMIDE 40 MG/4 ML VIAL IV SCH (10:00)
[2020-01-29 10:25] LABS: INR 0.99 (0.9-1.15); Partial Thromboplastin Time 24.4 sec (23.0-31.2)
--- NOTE | 2020-01-29 11:26 | NUR ---
DR NAVARRETE AT BEDSIDE DISCUSSED PATIENTS STATUS AND CALLED LARA GARCIA TO UPDATE, SHE WISHES TO MAKE PATIENT A DNR-COMFORT MEASURES AND WITHDRAWAL VENTILATOR SUPPORT AFTER FAMILY CALLS IN TO SAY THEIR GOOD BYES
--- NOTE | 2020-01-29 11:45 | NUR ---
SPOKE WITH JOSE FAMILY IS TRYING TO GET AHOLD OF PATIENTS LONG TIME FRIEND BEFORE WITHDRAWAL OF VENTILATOR
[2020-01-29] MEDS ORDERED: MIDAZOLAM DRIP 50 mg/50mL 50 ML IV ONE (13:45)
[2020-01-29] MEDS ORDERED: LORazepam 2MG/ML-1ML VIAL IV PRN ×2 (13:45→15:30)
[2020-01-29] MEDS ORDERED: MORPHINE SULF INJ 2 MG/ML SYRINGE 1ML IV PRN ×2 (13:45→15:30)
--- NOTE | 2020-01-29 13:50 | NUR ---
Re started another bag of Versed drip, awaiting family to come in and see patient.
--- NOTE | 2020-01-29 14:30 | NUR ---
PATIENTS FRIEND AURY CALLED FOR UPDATE PROVIDED PASSWORD, UPDATED ON PATIENTS STATUS AND FAMILYS WISHES
--- NOTE | 2020-01-29 14:55 | NUR ---
PATIENTS AUNT CALLED UPDATED ON STATUS, CALL TRANSFERRED TO ROOM PHONE FOR HER TO SPEAK TO PATIENT
--- NOTE | 2020-01-29 16:03 | NUR ---
PT. TERMINALLY EXTUBATED, PER DR. MCGRATH ORDERS AND FAMILY. PT. PLACED ON 3LPM NC,COMFORT MEDS GIVEN BY RN.
--- NOTE | 2020-01-29 17:03 | NUR ---
[facility] NOTIFIED ON PATIENT ASYSTOLIC. REF # [id number] DUE TO PATIENTS COVID INFECTION, PATIENT IS NOT A CANDIDATE FOR DONATION
--- NOTE | 2020-01-29 17:10 | NUR ---
PRONOUNCEMENT OF ASKED TO PRONOUNCE PT SINCE UNAVAILABLE. PT WAS TERMINALLY WEANED AT 1603. FOUND PULSELESS AND APNEIC. ASYSTOLE IN 3 LEADS. ABSENCE OF HEART TONES AND RESP AFTER ONE FULL MINUTE OF AUSCULTATION. ABSENCE CORNEALS, GAG, DTR'S. NO PUPILLARY RESPONSE. TOD 171
--- NOTE | 2020-01-29 17:10 | NUR ---
TIME OF 1709- PRONOUNCED BY TRUCK DRIVER INSTRUCTOR, JOSE BARRY
--- NOTE | 2020-01-29 17:11 | NUR ---
CALLED HEAVY TRUCK MECHANIC TO REPORT AWAITING RETURN CALL
--- NOTE | 2020-01-29 17:15 | NUR ---
LEFT MESSAGE FOR JOSE CHA TO NOTIFY OF
--- NOTE | 2020-01-29 18:30 | NUR ---
JOSE CHA RETURNED CALL. UPDATED HER OF TIME OF .
--- NOTE | 2020-01-30 05:13 | NUR ---
MAIL ORDER BILLER CALLED BACK [facility] MAIL ORDER BILLER'S
--- NOTE | 2020-01-30 09:30 | NUR ---
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
--- NOTE | 2020-01-30 10:55 | NUR ---
Spoke with pt.'s [id number], Dominic Mace; states he will come to hospital to worm picker pt.'s Belongings. [facility] staff instructed to sanitize bag and place in second bag for precautions due to pt. was Covid positive.
--- NOTE | 2020-01-30 12:00 | NUR ---
Per Security staff, pt.'s family (Dominic Mace) picked up pt.'s Belongings Bag without incident.
== END 2020-01-29 15:17 | DRG 207 ==
LOC: EDBD 12:45 → ER 12:45 → TELE 18:58 → TELE-CENTR 01-19 23:53 → DOU IN ICU 01-19 23:59
PROVIDERS: ADMIT Hospitalist; ATTEND Internal Medicine
PROC: XW033E5 Introduction of Remdesivir Anti-infective into Peripheral Vein, Percutaneous Approach, New Technology Group 5 (ICD-10-PCS; 2020-01-20)
PROC: XW13325 Transfusion of Convalescent Plasma (Nonautologous) into Peripheral Vein, Percutaneous Approach, New Technology Group 5 (ICD-10-PCS; 2020-01-21)
PROC: 5A09357 Assistance with Respiratory Ventilation, Less than 24 Consecutive Hours, Continuous Positive Airway Pressure (ICD-10-PCS; 2020-01-23)
PROC: 5A09357 Assistance with Respiratory Ventilation, Less than 24 Consecutive Hours, Continuous Positive Airway Pressure (ICD-10-PCS; 2020-01-24)
PROC: 5A1955Z Respiratory Ventilation, Greater than 96 Consecutive Hours (ICD-10-PCS; principal; 2020-01-25)
PROC: 0BH17EZ Insertion of Endotracheal Airway into Trachea, Via Natural or Artificial Opening (ICD-10-PCS; 2020-01-25)
PROC: 5A09357 Assistance with Respiratory Ventilation, Less than 24 Consecutive Hours, Continuous Positive Airway Pressure (ICD-10-PCS; 2020-01-25)
DX: U07.1 COVID-19 (principal); J12.89 Other viral pneumonia; J96.01 Acute respiratory failure with hypoxia; J45.901 Unspecified asthma with (acute) exacerbation; E87.1 Hypo-osmolality and hyponatremia; R65.10 Systemic inflammatory response syndrome (SIRS) of non-infectious origin without acute organ dysfunction; J44.1 Chronic obstructive pulmonary disease with (acute) exacerbation; J44.0 Chronic obstructive pulmonary disease with (acute) lower respiratory infection; Z51.5 Encounter for palliative care; Z66 Do not resuscitate; E78.5 Hyperlipidemia, unspecified; F32.9 Major depressive disorder, single episode, unspecified; Z96.612 Presence of left artificial shoulder joint; E11.42 Type 2 diabetes mellitus with diabetic polyneuropathy; E11.65 Type 2 diabetes mellitus with hyperglycemia; F41.9 Anxiety disorder, unspecified; H40.9 Unspecified glaucoma; E66.9 Obesity, unspecified; M19.90 Unspecified osteoarthritis, unspecified site; E87.6 Hypokalemia; I10 Essential (primary) hypertension; Z68.30 Body mass index [BMI] 30.0-30.9, adult; Z78.1 Physical restraint status; Z90.49 Acquired absence of other specified parts of digestive tract; Z82.5 Family history of asthma and other chronic lower respiratory diseases; Z82.49 Family history of ischemic heart disease and other diseases of the circulatory system; Z80.3 Family history of malignant neoplasm of breast; Z79.899 Other long term (current) drug therapy
CPT/HCPCS: 36415; 36600; 71045; 80053; 80074; 81001; 82728; 82805; 82962; 83036; 83605; 83615; 83735; 83880; 84443; 84484; 85025; 85379; 85610; 85730; 86141; 86850; 86900; 86901; 87040; 87070; 87205; 87426; 87804; 93970; 94002; 94003; 94640; 94660; 99291; G0378; J0330; J1100; J1815; J2250; J2405; J2704; J3490; P9047